=== PATIENT | male | born 1985 | race Hispanic/Latino ===

== ENCOUNTER 2021-04-28 14:34 | Emergency (ER) | payer BC ==
[~2021-04-28] VITALS: Ht 180.3 cm; Wt 81.3 kg
[2021-04-28] MEDS ORDERED: HUMIRA PEN40 MG/0.1 (15:19)
[2021-04-28] MEDS ORDERED: DOXYCYCLINE HY100 MG PO (15:23)
[2021-04-28] MEDS ORDERED: CLEOCIN HCL300 MG PO (15:24)
[2021-04-28] MEDS ORDERED: IBUPROFEN600 MG PO (15:25)
[2021-04-28] MEDS ORDERED: HYDROCODON-ACE1 EA12 PO (15:27)
== END 2021-04-28 15:43 | disposition home or self-care (01) ==
LOC: FSED 14:48
DX: K61.1 Rectal abscess (principal); D84.821 Immunodeficiency due to drugs; L40.9 Psoriasis, unspecified
CPT/HCPCS: 99282

== ENCOUNTER 2021-09-16 23:33 | Emergency (ER) | payer BC ==
[~2021-09-16] VITALS: Ht 180.3 cm; Wt 81.2 kg
[~2021-09-16 23:33] MED LIST: CLEOCIN HCL300 MG PO; DOXYCYCLINE HY100 MG PO; HUMIRA PEN40 MG/0.1; HYDROCODON-ACE1 EA12 PO; IBUPROFEN600 MG PO
[2021-09-17] MEDS ORDERED: DOXYCYCLINE HY100 MG PO (00:14)
== END 2021-09-17 00:28 | disposition home or self-care (01) ==
LOC: FSED 23:49
DX: L73.9 Follicular disorder, unspecified (principal); L40.9 Psoriasis, unspecified
CPT/HCPCS: 99282

== ENCOUNTER 2022-01-04 10:55 | Emergency (ER) | payer BC, OTHER ==
[~2022-01-04] VITALS: Ht 180.3 cm; Wt 83.1 kg
[2022-01-04] MEDS ORDERED: SKYRIZI150 MG/1 M (11:45)
[2022-01-04] MEDS ORDERED: TETRACAINE HCL 0.5% OPTH SOLN 4 ML BTL OP ONE (12:00)
[2022-01-04] MEDS ORDERED: FLUORESCEIN SOD(OPTH) 1 MG STRP OP ONE (12:00)
[2022-01-04] MEDS ORDERED: TOBRADEX EYE DRO5 ML OU (12:09)
== END 2022-01-04 12:19 | disposition home or self-care (01) ==
LOC: FSED 11:42
DX: H10.33 Unspecified acute conjunctivitis, bilateral (principal); L40.9 Psoriasis, unspecified; J30.2 Other seasonal allergic rhinitis; D84.821 Immunodeficiency due to drugs
CPT/HCPCS: 99283

== ENCOUNTER 2022-03-26 15:31 | Inpatient (IN) | payer BC, OTHER ==
[~2022-03-26] VITALS: Ht 180.3 cm; Wt 86.2 kg
[~2022-03-26 15:31] MED LIST changes: +SKYRIZI150 MG/1 M; +TOBRADEX EYE DRO5 ML OU
[2022-03-26] MEDS ORDERED: SODIUM CHLORIDE 0.9% 1000ML 2,000 ML ONE (16:04)
[2022-03-26] MEDS ORDERED: ONDANSETRON HCL INJ 2MG/ML 2ML 2 MG/ML VIAL ONE (16:05)
[2022-03-26] MEDS ORDERED: PENICILLIN G BENZATHINE LA 1.2 MU TBX IM STA (16:55)
[2022-03-26] MEDS ORDERED: SODIUM CHLORIDE 0.9% 1000ML 1,000 ML IV SCH (17:00)
[2022-03-26] MEDS ORDERED: ONDANSETRON HCL INJ 2MG/ML 2ML 2 MG/ML VIAL IV STA (17:05)
[2022-03-26] MEDS ORDERED: SODIUM CHLORIDE 0.9% 1000ML 1,000 ML IV ONE (17:15)
[2022-03-26 17:32] LABS: CLARITY,URINE CLOUDY (CLEAR); COLOR,URINE BROWN (YELLOW); KETONES,URINE 1+ (NEGATIVE); LEUKOCYTE ESTERASE ,URINE NEGATIVE (NEGATIVE); NITRITE,URINE NEGATIVE (NEGATIVE); PROTEIN,URINE DIPSTICK >=300 (NEGATIVE); URINE UROBILINOGEN 0.2 mg/dL (0.2 - 1)
[2022-03-26] MEDS ORDERED: PENICILLIN G BENZATHINE LA 1.2 MU TBX ONE (17:32)
[2022-03-26 17:44] LABS: AMORPHOUS SEDIMENT,URINE MODERATE (FEW); BACTERIA,URINE MODERATE /HPF; WBC,URINE (MAN) 0-5 /HPF (0-5)
[2022-03-26] MEDS ORDERED: ONDANSETRON HCL INJ 2MG/ML 2ML 2 MG/ML VIAL IV PRN (19:15)
[2022-03-26 20:30] VITALS: BP 132/74
[2022-03-26] MEDS: SODIUM CHLORIDE 0.9% 1000ML 1,000 ML IV SCH (22:45)
[2022-03-27] VITALS (8 sets, daily range): BP systolic 123–154; BP diastolic 72–88
[2022-03-27 06:27] LABS: BASOPHILS % 0.5 % (0.0-1.0); EOSINOPHILS % 0.5 % (0.0-6.0); HEMATOCRIT 39.7 % (38.2-49.6); LYMPHOCYTES # (AUTO) 1.9 (1.0-3.2); LYMPHOCYTES % 22.4 % (18.0-39.1); MEAN CORPUSCULAR HEMOGLOBIN 31.9 pg (28-32); MEAN CORPUSCULAR HGB CONC 32.7 g/dL (31-35); MEAN CORPUSCULAR VOLUME 97.3 fL (81-99); MONOCYTES # (AUTO) 1.1 (0.2-0.8); MONOCYTES % 12.9 % (4.4-11.3); NEUTROPHILS # (AUTO) 5.3 (2.1-6.9); NEUTROPHILS % 63.5 % (38.7-80.0); PLATELET COUNT 195 x10e3/uL (140-360); RED BLOOD COUNT 4.08 x10e6/uL (4.3-5.7); RED CELL DISTRIBUTION WIDTH 11.5 % (11.7-14.4)
[2022-03-27 06:39] LABS: ALBUMIN 2.9 g/dL (3.5-5.0); ALBUMIN/GLOBULIN RATIO 0.9 (0.8-2.0); ANION GAP 12.6 mmol/L (8-16); CALCIUM 8.3 mg/dL (8.4-10.2); CREATININE, SERUM 1.57 mg/dL (0.72-1.25); POTASSIUM 3.6 mmol/L (3.5-5.1)
[2022-03-27] MEDS: ACETAMINOPHEN 325 MG TAB PO PRN (12:50)
[2022-03-27] MEDS: SODIUM CHLORIDE 0.9% 1000ML 1,000 ML IV SCH ×2 (12:51→15:15)
[2022-03-28] VITALS: BP 131/84
[2022-03-28 04:00] VITALS: BP 138/76
[2022-03-28] MEDS: ACETAMINOPHEN 325 MG TAB PO PRN (04:04)
[2022-03-28] MEDS: SODIUM CHLORIDE 0.9% 1000ML 1,000 ML IV SCH (04:05)
[2022-03-28 05:35] LABS: BASOPHILS % 0.3 % (0.0-1.0); EOSINOPHILS # (AUTO) 0.1 (0.0-0.4); EOSINOPHILS % 0.9 % (0.0-6.0); HEMATOCRIT 39.3 % (38.2-49.6); HEMOGLOBIN 12.8 g/dL (14.0-18.0); LYMPHOCYTES # (AUTO) 2.2 (1.0-3.2); LYMPHOCYTES % 23.6 % (18.0-39.1); MEAN CORPUSCULAR HEMOGLOBIN 31.4 pg (28-32); MEAN CORPUSCULAR HGB CONC 32.6 g/dL (31-35); MEAN CORPUSCULAR VOLUME 96.3 fL (81-99); MONOCYTES # (AUTO) 1.1 (0.2-0.8); MONOCYTES % 11.9 % (4.4-11.3); NEUTROPHILS # (AUTO) 5.8 (2.1-6.9); PLATELET COUNT 208 x10e3/uL (140-360); RED BLOOD COUNT 4.08 x10e6/uL (4.3-5.7); RED CELL DISTRIBUTION WIDTH 11.3 % (11.7-14.4)
[2022-03-28 06:07] LABS: ANION GAP 13.5 mmol/L (8-16); CALCIUM 8.3 mg/dL (8.4-10.2); CREATININE, SERUM 1.39 mg/dL (0.72-1.25); POTASSIUM 3.5 mmol/L (3.5-5.1)
[2022-03-28 08:40] VITALS: BP 141/85
[2022-03-28 08:48] VITALS: BP 141/85
== END 2022-03-28 10:24 | disposition home or self-care (01) | DRG 699 ==
LOC: FSED 16:12 → ERHOLD 19:10 → MED/SURG2 20:50 → OBSVTOIN 03-27 08:13
PROVIDERS: ADMIT Internal Medicine; ATTEND Internal Medicine
DX: N05.9 Unspecified nephritic syndrome with unspecified morphologic changes (principal); D84.821 Immunodeficiency due to drugs; N39.0 Urinary tract infection, site not specified; N17.9 Acute kidney failure, unspecified; D64.9 Anemia, unspecified; T50.995A Adverse effect of other drugs, medicaments and biological substances, initial encounter; R31.0 Gross hematuria; N20.0 Calculus of kidney; J02.0 Streptococcal pharyngitis; L40.9 Psoriasis, unspecified; Z98.890 Other specified postprocedural states; Z79.2 Long term (current) use of antibiotics; Z79.891 Long term (current) use of opiate analgesic; Z79.60 Long term (current) use of unspecified immunomodulators and immunosuppressants; Z79.1 Long term (current) use of non-steroidal anti-inflammatories (NSAID); Z79.899 Other long term (current) drug therapy; Z82.49 Family history of ischemic heart disease and other diseases of the circulatory system; Z96.651 Presence of right artificial knee joint; Z87.442 Personal history of urinary calculi
CPT/HCPCS: 36415; 74176; 80048; 80053; 81001; 81003; 82550; 82553; 83518; 83970; 84484; 84550; 85025; 86039; 86160; 86162; 87086; 87400; 96374; 96376; 99284; G0378; J0561; J2405; J7030

== ENCOUNTER 2022-05-09 20:14 | Emergency (ER) | payer BC, OTHER ==
[~2022-05-09] VITALS: Ht 180.3 cm; Wt 80.7 kg
[2022-05-09] MEDS ORDERED: Clindamycin INJ 150 MG/ML 600 MG Vial IM ONE (21:00)
[2022-05-09] MEDS ORDERED: DOXYCYCLINE HY100 MG PO (21:14)
[2022-05-09] MEDS ORDERED: CEFTRIAXONE 1 GM VIAL IM ONE (21:15)
[2022-05-09] MEDS ORDERED: CEFTRIAXONE 1 GM VIAL ONE (21:23)
[2022-05-09 21:30] VITALS: BP 121/62
[2022-05-10] MEDS ORDERED: SKYRIZI150 MG/1 M (08:23)
[2022-05-10] MEDS ORDERED: IBUPROFEN200 MG PO (08:23)
[2022-05-10] MEDS ORDERED: TYLENOL EXTRA500 MG PO (08:23)
== END 2022-05-09 21:30 | disposition home or self-care (01) ==
LOC: FSED 20:19
DX: L02.01 Cutaneous abscess of face (principal); D84.821 Immunodeficiency due to drugs; T50.995A Adverse effect of other drugs, medicaments and biological substances, initial encounter; L40.9 Psoriasis, unspecified
CPT/HCPCS: 99283; J0696

== ENCOUNTER → 2022-05-11 | Day surgery (SDC) | payer BC, OTHER ==
[2022-05-10 13:26] LABS: BASOPHILS % 0.4 % (0.0-1.0); EOSINOPHILS # (AUTO) 0.1 (0.0-0.4); EOSINOPHILS % 1.2 % (0.0-6.0); HEMATOCRIT 40.7 % (38.2-49.6); HEMOGLOBIN 13.8 g/dL (14.0-18.0); LYMPHOCYTES # (AUTO) 2.3 (1.0-3.2); LYMPHOCYTES % 28.4 % (18.0-39.1); MEAN CORPUSCULAR HEMOGLOBIN 31.2 pg (28-32); MEAN CORPUSCULAR HGB CONC 33.9 g/dL (31-35); MEAN CORPUSCULAR VOLUME 92.1 fL (81-99); MONOCYTES # (AUTO) 0.5 (0.2-0.8); MONOCYTES % 6.1 % (4.4-11.3); NEUTROPHILS # (AUTO) 5.2 (2.1-6.9); NEUTROPHILS % 63.7 % (38.7-80.0); PLATELET COUNT 236 x10e3/uL (140-360); RED BLOOD COUNT 4.42 x10e6/uL (4.3-5.7); RED CELL DISTRIBUTION WIDTH 12.1 % (11.7-14.4)
[2022-05-10 15:33] LABS: ANION GAP 12.9 mmol/L (8-16); CALCIUM 9.5 mg/dL (8.4-10.2); CREATININE, SERUM 1.04 mg/dL (0.72-1.25); POTASSIUM 3.9 mmol/L (3.5-5.1)
[~2022-05-11] MED LIST changes: +CEFTRIAXONE 1 GM VIAL ONE; +DEXAMETHASONE SOD PHOS INJ 4 MG/ML SDV ONE; +DEXMEDETOMIDINE HCL 0 ML ONE; +FAMOTIDINE 20 MG/2 ML VIAL IV ONE; +FENTANYL CITRATE/PF 100MCG/2 ML INJ ONE; +IBUPROFEN200 MG PO; +IOPAMIDOL 610MG/1ML 300 MG/ML VIAL IV ONE; +LIDOCAINE HCL 2% LOCAL INJ 5 ML SDV VIAL INJ ONE; +MIDAZOLAM HCL 2 MG/2 ML VIAL ONE; +ONDANSETRON HCL INJ 2MG/ML 2ML 2 MG/ML VIAL ONE; +POVIDONE IODINE 0.05% 0.05 % ML PO ONE; +PROPOFOL IV EMULSION 10 MG/ML 20 ML VIAL ONE; +SEVOFLURANE INHAL SOLN 250 ML PEN BTL ONE; +SODIUM CHLORIDE 0.9% INJ 10 ML VIAL ONE; +TYLENOL EXTRA500 MG PO
[2022-05-11 09:05] VITALS: BP 127/88
== END | disposition home or self-care (01) ==
LOC: OR 06:22
PROVIDERS: ATTEND Urology
DX: N20.0 Calculus of kidney (principal); R35.1 Nocturia; Z01.812 Encounter for preprocedural laboratory examination; Z01.818 Encounter for other preprocedural examination; Z79.1 Long term (current) use of non-steroidal anti-inflammatories (NSAID); Z79.899 Other long term (current) drug therapy
CPT/HCPCS: 36415; 50590; 74018; 80048; 84550; 85025; C1758; J0696; J1100; J2001; J2250; J2405; J2704; J3010; Q9967

== ENCOUNTER 2023-01-01 05:23 | Emergency (ER) | payer OTHER ==
[~2023-01-01] VITALS: Ht 180.3 cm; Wt 83.9 kg
[~2023-01-01 05:23] MED LIST changes: -CEFTRIAXONE 1 GM VIAL ONE; -DEXAMETHASONE SOD PHOS INJ 4 MG/ML SDV ONE; -DEXMEDETOMIDINE HCL 0 ML ONE; -FAMOTIDINE 20 MG/2 ML VIAL IV ONE; -FENTANYL CITRATE/PF 100MCG/2 ML INJ ONE; -IOPAMIDOL 610MG/1ML 300 MG/ML VIAL IV ONE; -LIDOCAINE HCL 2% LOCAL INJ 5 ML SDV VIAL INJ ONE; -MIDAZOLAM HCL 2 MG/2 ML VIAL ONE; -ONDANSETRON HCL INJ 2MG/ML 2ML 2 MG/ML VIAL ONE; -POVIDONE IODINE 0.05% 0.05 % ML PO ONE; -PROPOFOL IV EMULSION 10 MG/ML 20 ML VIAL ONE; -SEVOFLURANE INHAL SOLN 250 ML PEN BTL ONE; -SODIUM CHLORIDE 0.9% INJ 10 ML VIAL ONE
[2023-01-01 06:44] VITALS: BP 146/86; PULSE 93; RESP 18; TEMP 99.2; O2SAT 97
== END 2023-01-01 06:44 | disposition home or self-care (01) ==
LOC: FSED 05:30
DX: R50.9 Fever, unspecified (principal); J10.1 Influenza due to other identified influenza virus with other respiratory manifestations; R05.9 Cough, unspecified; D84.821 Immunodeficiency due to drugs; Z79.899 Other long term (current) drug therapy; L40.9 Psoriasis, unspecified; Z20.822 Contact with and (suspected) exposure to COVID-19
CPT/HCPCS: 0223U; 83518; 87400; 99282

== ENCOUNTER 2024-10-23 08:06 | Emergency (ER) | payer OTHER ==
[~2024-10-23] VITALS: Ht 175.3 cm; Wt 82.3 kg
[~2024-10-23 08:06] MED LIST changes: +MUPIROCIN22 GM; +ONDANSETRON ODT4 MG PO; +TAMIFLU75 MG PO
[2024-10-23 08:19] VITALS: PULSE 69; RESP 16; TEMP 98.2; O2SAT 96
[2024-10-23] MEDS ORDERED: CEPHALEXIN500 MG PO (08:36)
== END 2024-10-23 08:41 | disposition home or self-care (01) ==
LOC: FSED 08:28
DX: N49.2 Inflammatory disorders of scrotum (principal); L40.9 Psoriasis, unspecified; Z87.442 Personal history of urinary calculi
CPT/HCPCS: 99283